=== PATIENT | female | born 1990 | race American Indian/Alaskan Native ===

== ENCOUNTER 2017-03-24 06:28 | Emergency (ER) | payer OTHER ==
[2017-03-24 08:03] VITALS: BMI 21.6
[2017-03-24 08:05] LABS: RBC URINE 1 /hpf (0-3); URINE BILIRUBIN NEGATIVE (NEGATIVE); URINE BLOOD NEGATIVE (NEGATIVE); URINE COLOR Yellow (YELLOW); URINE GLUCOSE (UA) NORMAL (Normal); URINE KETONE NEGATIVE (NEGATIVE); URINE LEUKOCYTE ESTERASE TRACE Leu/uL (Negative); URINE PROTEIN NEGATIVE (NEGATIVE); URINE UROBILINOGEN NORMAL mg/dL (0.2-1.0); WBC URINE 1 /hpf (0-5)
--- NOTE | 2017-03-24 09:43 | OBHP ---
Datetime: 03/24/2017 07:39 IP Chief Complaint Other: Right leg pain; vaginal pain IP Adm Impression Other: h/o DVT index IP Admit Plan: Observation/Evaluation; Discharge home Admit Comment, IP Provider: 26 y.o. , LMP unsure, ZEFERINO 08/09/17, EGA 20w 2d c/o right leg pain , onset 1 month ago and worse over past 1 week. Feel like a tightening to the leg and "my right leg f eels cold" Known DVT - first diagnosed at 4 weeks this ; started on lovenox. With this comp laint, patient states after her routine visit with Dr. Manuel two days ago, went to the [facility] in the [facility]. Patietn states " they did an ultrasound of my leg and they said no clot was there". Pr enatal care: Dr. Casandra Manuel, [facility], [facility] Patient states [place] like [facility], that's why she is here. Denies shortness of breath, chest pain. Also c/o vaginal pain upon urination x 2wee ks. Also c/o upper back pain also x approx 1 week. Denies nausea, vomiting P Ob: x 2: both males, both delivered at [facility] - 2006, 5lb 12oz; 2010, 7lb 11oz. No complicatio ns P [employer]: 13 x monthly x 3. 2014, (+) chlamydia PMH: h/o asthma. onset age 13 - first and only attack PSH: 2004, ex lap with right ovarian cystectomy Allergies: penicillin - anaphylaxis Meds: PNV; lovenox 60 mg SC BID Soc Hx: denies tobacco, illicit drug or EtOH use. Lives with her mother and her 2 children. Unempl oyed. Fam Hx: Mother alive 49 y.o. - H/O HTN; S/P CVA x 2, h/o seizure. Father alive 46 y.o. - no med i ssues. Pat aunt - h/o unk cancer P.E.: as above. Thin, appears well in NAD. Defensive. Assessment: 26 y.o. P2012, 20w 2d, h/o DVT on lovenox; c/o worsening right leg pain. Speculum exa m consistent with vaginal candidiasis. Patient is clinically stable. Plan: 1) Right leg Doppler study 2) U/A 3) observe Addendum: 0930 hours - patient returns from Doppler: noted for "abnormal findings of deep vein (femoral)" on left lower extremity. "No abnormal findings of the examined veins, right lower extremity. This was discussed with patient, i.e., left DVT confirmed as per her history; and no DVT on the ri ght. Patient encouraged to continue her lovenox; instructed as to treament for vaginal candidiasis; i nstructed as to be diligent with hydration (half her body weight in ounces of ewater daily); and to k eep her next appointment with Dr. Manuel, 04/06/17. Patient expressed an understanding and a grees. Plan: 1) Discharge patient home 2) as above. Pelvic Type - PN: Adequate Abdomen - PN: Normal Back - PN: Normal Breast - PN: Not Done Lungs - PN: Normal Heart - PN: Normal Thyroid - PN: Not Done Neurologic - PN: Normal HEENT - PN: Normal General - PN: Normal Contraction Comments Provider: none Comments, ACOG Physical Exam: Back: no CVA tenderness. Non tender along back "it tickles" Abdomen: Gravid. Soft. Non tender. Well healed low transverse incision. Extremities: no calf tenderness elicited in either leg. no size discrepancy. Both extremities warm . (+) dorsalis pedis pulses bilaterally Spec: no blood. Thick white cheesy discharge. No odor All other systems reviewed - as per HPI Gestation - Est Wks by US: 20w 2d EGA AdmitDate IP: 20.2 Vital Signs Provider: Reviewed IP Chief Complaint: Other Dilatation, Provider: 0 Effacement, Provider: 0 Station, Provider: n/a Genitourinary Exam: Normal DTRs - PN: Not Done
[2017-03-24 15:02] VITALS: BP 92/57; PULSE 88; TEMP 98.1
--- NOTE | 2017-03-27 10:47 | VASCLAB ---
PROCEDURE: Lower Extremity Venous Duplex Exam. HISTORY: c/o worsening right leg pain PRIORS: None. TECHNIQUE: Bilateral common femoral, femoral, popliteal and posterior tibial, peroneal and great saphenous veins were evaluated. Flow was assessed with color Doppler, compressibility, assessment of phasic flow and augmentation response. Report prepared by Edison Lawson, FREDDY, RVT FINDINGS: RIGHT: 1. Common Femoral Vein: 1.1. Compressibility - Fully compressible: Thrombus - None : Flow - Phasic: Augmentation -Normal: Reflux - None. 2. Femoral Vein: 2.1. Compressibility - Fully compressible: Thrombus - None : Flow - Phasic: Augmentation -Normal: Reflux - None. 3. Popliteal Vein: 3.1. Compressibility - Fully compressible: Thrombus - None : Flow - Phasic: Augmentation -Normal: Reflux - None. 4. Posterior Tibial Vein: 4.1. Compressibility - Fully compressible: Thrombus - None: Flow - Phasic: Augmentation -Normal: Reflux - None. 5. Peroneal Vein: 5.1. Compressibility - Fully compressible: Thrombus - None: Flow - Phasic: Augmentation -Normal: Reflux - None. 6. Great Saphenous Vein: 6.1. Compressibility - Fully compressible: Thrombus - None: Flow - Phasic: Augmentation - Normal: Reflux - None. LEFT: 1. Common Femoral Vein: 1.1. Compressibility - Fully compressible: Thrombus - None: Flow - Phasic: Augmentation -Normal: Reflux - None. 2. Femoral Vein: 2.1. Compressibility - Partial: Thrombus - Chronic: Flow - Reduced : Augmentation -Reduced: Reflux - None. 3. Popliteal Vein: 3.1. Compressibility - Fully compressible: Thrombus - None : Flow - Phasic: Augmentation -Normal: Reflux - None. 4. Posterior Tibial Vein: 4.1. Compressibility - Fully compressible: Thrombus - None: Flow - Phasic: Augmentation -Normal: Reflux - None. 5. Peroneal Vein: 5.1. Compressibility - Fully compressible: Thrombus - None: Flow - Phasic: Augmentation -Normal: Reflux - None. 6. Great Saphenous Vein: 6.1. Compressibility - Fully compressible: Thrombus - None: Flow - Phasic: Augmentation - Normal: Reflux - None. OTHER FINDINGS: Right: None significant. Left: None significant. IMPRESSION: Right: No evidence of deep or superficial vein thrombosis of the right lower extremity. Normal valve function noted of the right side. 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
== END 2017-03-24 09:47 | disposition home or self-care (01) ==
LOC: C.EROB 06:28
DX: O26.892 Other specified pregnancy related conditions, second trimester (principal); M79.604 Pain in right leg; O98.812 Other maternal infectious and parasitic diseases complicating pregnancy, second trimester; B37.3 Candidiasis of vulva and vagina; Z3A.20 20 weeks gestation of pregnancy